=== PATIENT | male | born 1935 | race Caucasian/White ===

== ENCOUNTER 2023-03-31 13:38 | Observation (INO) | payer MEDICARE, SELFPAY ==
[2023-03-31] VITALS (47 sets, daily range): BP systolic 106–162; BP diastolic 60–93; PULSE 87–112; RESP 14–28; TEMP 36.4–36.8; O2SAT 90–100; BMI 24.0
--- NOTE | ~2023-03-31 | XR_ITS ---
EXAMINATION: XR chest 1V portable DATE: 03/31/2023 15:17 INDICATION: Shortness of breath and cough TECHNIQUE: frontal view of the chest was obtained. COMPARISON: None FINDINGS: Coarse interstitial and patchy airspace opacities in the bilateral mid and lower lung zones. Small ri ght pleural effusion. No pneumothorax. The cardiomediastinal silhouette is normal limits for AP techn ique. Mild thoracic dextrocurvature and partially visualized lumbar levocurvature with moderate thora cic and severe lumbar spondylosis. IMPRESSION: 1. Opacities in bilateral mid and lower lung zones which could represent pneumonia and/or pulmonary e dora. 2. Small right pleural effusion. Reviewed, dictated and finalized at location A. IMPRESSION: 1. Opacities in bilateral mid and lower lung zones which could represent pneumo hero and/or pulmonary edema. 2. Small right pleural effusion.
--- NOTE | ~2023-03-31 | US_ITS ---
US venous doppler [facility] DATE: 04/01/2023 08:55 INDICATION: Bilateral lower extremity edema TECHNIQUE: Real-time and color flow imaging and Doppler analysis of the veins of the lower extremitie s COMPARISON: None FINDINGS: There is thrombus within the right common femoral vein with incomplete compression. There is spontaneous flow, normal augmentation and color flow signal and normal compression of the re mainder of the deep veins of both lower extremities. The greater saphenous veins are patent. IMPRESSION: Deep venous thrombosis partially occluding right common femoral vein Reviewed, dictated and finalized at Location [facility]. Reviewed, dictated and finalized at location A. IMPRESSION: Deep venous thrombosis partially occluding right common femoral vei n
--- NOTE | ~2023-03-31 | CT_ITS ---
EXAMINATION: CTA chest PE protocol DATE: 04/01/2023 03:12 INDICATION: Shortness of breath. Cough. TECHNIQUE: Computed tomography angiography (CTA) of the chest was performed with 100 mL Omnipaque-350 intravenous contrast timed to evaluate the pulmonary arteries. Coronal maximum intensity projection 3D-reconstructions were created by the technologist. Automated exposure control and iterative reconst ruction technique were employed. The dose-length product was 528.03 mGy-cm. COMPARISON: Chest single view 03/31/2023 FINDINGS: There is mild emphysema. A calcified right lung nodule and calcified right hilar lymph node s are consistent with old granulomatous disease. There are patchy airspace opacities and nodules in a ll lobes with a lower lung predominance. The largest lung nodule measures 7 mm. There are small pleur al effusions. There is bilateral hilar and mediastinal lymphadenopathy and right supraclavicular lymp hadenopathy. For example, a right supraclavicular node measures 1.6 x 1.2 cm. The heart size is chelsie l. There are coronary artery calcifications. There are calcifications aortic valve. There is a small pericardial effusion. There is no pulmonary embolus. Partially visualized is severe right hydronephro sis. There is thoracic dextroscoliosis and kyphosis. There is severe cervical, thoracic, and lumbar s pondylosis. There are bridging endplate osteophytes at multiple levels in the spine, consistent with diffuse idiopathic skeletal hyperostosis (DISH). There is a lytic lesion in T8 vertebral body. IMPRESSION: 1. No pulmonary embolus. 2. Diffuse lung disease, likely pneumonia. Superimposed metastatic disease cannot be excluded. 3. Bilateral hilar, mediastinal, and right supraclavicular lymphadenopathy, which may be reactive and /or metastatic disease. 4. Small pleural effusions. 5. Small pericardial effusion. 6. T8 lytic lesion, which may be a hemangioma or metastatic disease. 7. Partially visualized severe right hydronephrosis. CT abdomen and pelvis without and with contrast (CT urogram) is recommended. 8. Mild emphysema. Reviewed, dictated and finalized at location E. IMPRESSION: 1. No pulmonary embolus. 2. Diffuse lung disease, likely pneumonia. Superimposed metastatic disease domonique ot be excluded. 3. Bilateral hilar, mediastinal, and right supraclavicular lymphadenopathy, whi ch may be reactive and/or metastatic disease. 4. Small pleural effusions. 5. Small pericardial effusion. 6. T8 lytic lesion, which may be a hemangioma or metastatic disease. 7. Partially visualized severe right hydronephrosis. CT abdomen and pelvis with out and with contrast (CT urogram) is recommended. 8. Mild emphysema.
--- NOTE | 2023-03-31 13:46 | ECG_ITS ---
Measurements Intervals [place] Rate: 92 P: 53 CO: 160 QRS: -11 QRSD: 69 T: 48 QT: 319 QTc: 395 Interpretive Statements SINUS RHYTHM ATRIAL PREMATURE COMPLEX BORDERLINE R WAVE PROGRESSION, ANTERIOR LEADS INFERIOR INFARCT, AGE INDETERMINATE ABNORMAL ECG NO PREVIOUS ECG AVAILABLE FOR COMPARISON Electronically Signed On 03-31-2023 17:01:08 CDT by Александр Núñez D.O.
--- NOTE | 2023-03-31 15:07 | ED.EXTPRO ---
HPI - Extremity Problem General Chief complaint: Extremity Problem,Nontraumatic Stated complaint: BLE swelling Time Seen by Provider: 03/31/23 14:16 History of Present Illness HPI Narrative: Patient is an 88-year-old male presenting with leg swelling. Patient states that for the last day or 2 he has had bilateral lower extremity swelling. States that it is not painful. He lives with his daughter who is concerned so they called an ambulance. States that he has oxygen at home but he uses it very infrequently. States that he has had a cough and some mild shortness of breath for the last couple of days. He denies any pain. Denies further complaints. Related Data Home Medications Medication Instructions Recorded Confirmed ammonium lactate 1 dose topical BID 03/31/23 03/31/23 desonide 0.05 % topical cream 1 applic topical BID 03/31/23 03/31/23 diclofenac sodium 75 mg 75 mg PO BID 03/31/23 03/31/23 tablet,delayed release finasteride 5 mg tablet 5 mg PO DAILY 03/31/23 03/31/23 misoprostol 100 mcg tablet 100 mcg PO BID 03/31/23 03/31/23 pregabalin 150 mg capsule 300 mg PO BID 03/31/23 03/31/23 rosuvastatin 10 mg tablet 10 mg PO DAILY 03/31/23 03/31/23 Allergies Allergy/AdvReac Type Severity Reaction Status Date / Time No Known Allergies Allergy Verified 03/31/23 21:40 Review of Systems Review of Systems: All systems reviewed & are unremarkable except as noted in HPI and below PMFSH Past Medical History Medical History (Updated 03/31/23 @ 23:27 by Fabienne Nash PA-C) Arthritis Benign prostatic hyperplasia Chronic obstructive pulmonary disease Chronic respiratory failure with hypoxia, on home oxygen therapy Hyperlipidemia Peptic ulcer Rheumatoid arthritis Tobacco dependence Surgical History Surgical History Surgical history unknown Family History Family History (Updated 03/31/23 @ 23:23 by Fabienne Nash PA-C) Other Family history unknown Social History Social History (Updated 03/31/23 @ 23:24 by Fabienne Nash PA-C) Social History: Surrogate medical decision maker: Chiquita Perez, daughter. Code status: Full code. Smoking packs per day: 1 Smoking cigarettes per day: 20.0 Years smoked: 69 Smoking pack-years: 69.00 Smoking status: Current every day smoker Tobacco type: cigarettes Alcohol intake: never Drinks per week: 0 Substance use: never Substance use type: does not use Lack of Transportation: No Lack of Food: Never True Current Housing: I Have Housing Concerned About Future Housing: No Difficulty Paying Gas/Electric Bills: No Difficulty Paying for Meds: No Currently Unemployed: No Education: Associate Degree Difficulty w/ Childcare or Family Care: No Additional living arrangements comments: Lives with daughter and son-in-law in [place]. Additional occupation/education comments: Retired. Was in the [employer] as a young man. Spiritual care concerns: No Exam Narrative: GENERAL: Chronically ill-appearing, nontoxic, no acute distress HEAD: Normocephalic, atraumatic. EYES: PERRLA and EOMI. ENT: Grossly unremarkable NECK: Supple. CHEST: Scattered wheezing and crackles, no respiratory distress, on 2 L nasal cannula HEART: Regular rate and rhythm. Normal peripheral pulses. ABDOMEN: Soft, nontender, nondistended EXTREMITIES: Normal range of motion. + Bilateral pitting edema almost to the knees with overlying venous stasis dermatitis SKIN: Warm, dry, see above NEURO: Alert and oriented x3. PSYCH: Normal affect Course Vital Signs Vital signs: Vital Signs Temperature 97.5 F L 03/31/23 13:37 Pulse Rate 96 03/31/23 13:37 Respiratory Rate 22 H 03/31/23 13:37 Blood Pressure 162/83 H 03/31/23 13:37 Pulse Oximetry 94 03/31/23 13:37 Oxygen Delivery Nasal Cannula 03/31/23 13:37 Oxygen Flow Rate 2 03/31/23 13:37 Temperature 97.8 F 04/02/23 14:00 P
[2023-03-31 15:26] LABS: Basophils Absolute Auto 0.1 K/mm3 (0.0-0.1); Basophils Percent Auto 0.6 % (0.2-1.2); Eosinophils Absolute Auto 0.2 K/mm3 (0-0.3); Eosinophils Percent Auto 1.6 % (0-4.4); Hematocrit 42.6 % (42.0-52.0); Hemoglobin 14.2 g/dL (14.0-18.0); Immature Granulocyte Absolute 0.03 K/mm3 (0.00-0.031); Immature Granulocyte Percent A 0.3 % (0-0.5); Lymphocytes Absolute Auto 1.85 K/mm3 (0.9-3.2); Lymphocytes Percent Auto 16.6 % (18.3-44.2); Mean Corpuscular HGB Conc 33.3 g/dl (32-36); Mean Corpuscular Hemoglobin 29.4 pg (26-34); Mean Corpuscular Volume 88.2 fl (80-100); Mean Platelet Volume 9.3 fl (7.4-10.4); Monocytes Absolute Auto 0.9 K/mm3 (0.1-0.6); Monocytes Percent Auto 7.9 % (2.6-8.5); Neutrophils Absolute Auto 8.1 K/mm3 (1.3-6.7); Platelet Count Result 352 k/mm3 (150-375); Red Blood Count 4.83 M/mm3 (4.6-6.20); Red Cell Distribution Width 14.6 % (11.5-14.5); White Blood Count 11.1 K/mm3 (4.5-10.0)
[2023-03-31 15:38] LABS: INR 1.1; Partial Thromboplastin Time 26.9 SECONDS (22.3-36.8); Prothrombin Time 14.3 Seconds (11.1-14.7)
[2023-03-31 15:39] LABS: Alanine Aminotransferase 19 U/L (6-50); Albumin Level 3.7 g/dL (3.5-5.1); Alkaline Phosphatase 128 U/L (38-126); Anion Gap 5 mmol/L (8-16); Aspartate Amino Transferase 38 U/L (17-59); Bilirubin,Total 0.5 mg/dL (0.2-1.3); Blood Urea Nitrogen 45 mg/dL (9-20); Calcium 8.4 mg/dL (8.4-10.2); Carbon Dioxide 31 mmol/L (22-30); Chloride 91 mmol/L (98-107); Estimated CRCL calculation 41 ml/min; Estimated Glomerular Filt Rate 57; Glucose 127 mg/dL (65-110); Magnesium 2.2 mg/dL (1.6-2.3); Potassium 4.5 mmol/L (3.4-5.0); Sodium 127 mmol/L (137-145)
[2023-03-31 15:50] LABS: NT Pro B Type Natriuretic Pept 295 pg/mL (19.9-100); Troponin I < 0.012 ng/mL (0.000-0.034)
[2023-03-31 16:02] LABS: Influenza A QL RT-PCR Negative (Negative); Influenza B QL RT-PCR Negative (Negative); SARS-CoV-2 RNA PCR Negative (Negative)
[2023-03-31] MEDS: IPRATROPIUM BR 0.02% INH SOLN 0.5 MG/2.5 ML VIAL INHALATION (16:46)
[2023-03-31] MEDS: ALBUTEROL SULFATE NEB 2.5 MG/3 ML INH 5 MG INHALATION (16:46)
[2023-03-31] MEDS: FUROSEMIDE INJ 40 MG/4 ML VIAL IV PUSH (17:49)
--- NOTE | 2023-03-31 20:55 | ADMGEN ---
This patient, Ryan Aguilar, was admitted to Medical Room 347-01. Patient/family oriented to hospital policies and general routines including ID bracelet, bed and alarms, visiting hours, pain management, procedures, bathroom and other care routines, personal items, smoking policy, room service/diet, and visiting hours. Information on how to activate the Rapid Response Team has been discussed. Patient/Family are encouraged to report perceived risks to care and to ask questions if they do not understand what they are told or what they should do.
[2023-03-31 22:53] LABS: Troponin I < 0.012 ng/mL (0.000-0.034)
--- NOTE | 2023-03-31 23:17 | PM.IMHP ---
H&P: HPI History of Present Illness Date/Time: 03/31/23 20:45 Chief Complaint: Leg swelling and shortness of breath. Narrative: This is a pleasant 88-year-old male smoker with chronic respiratory failure on p.r.n. oxygen, chronic obstructive pulmonary disease, rheumatoid arthritis, hyperlipidemia, benign prostatic hyperplasia, and deep venous thrombosis who presented to the emergency department via EMS from home for evaluation of leg swelling and shortness of breath. The patient provides the following history. He seems rather forgetful and is a fair historian. No family members are present to provide additional information and he has never been seen before at this facility. The last several days he reports increasing shortness of breath from baseline and has noticed an increase in lower extremity edema. He lives at home with his daughter and son-in-law who became concerned and encouraged him to come in for evaluation. He has a chronic smoker's cough which she states is unchanged. He denies fever, chills, sweats, headache, sinus congestion, sore throat, chest pain, pleuritic pain, palpitations, nausea, vomiting, and diarrhea. He was afebrile on arrival to the ED with stable blood pressures. He arrived on 2 L nasal cannula and his SpO2 has been in the mid 90s. He is intermittently tachycardic in the low 100s. Labs were significant for a WBC count of 11.1, sodium 127, chloride 91, BUN 45, creatinine 1.20, troponin less than 0.012, proBNP 295. He tested negative for influenza and COVID. Chest x-ray showed a small right pleural effusion and opacities in the bilateral mid and lower lung zones which could be pneumonia and/or pulmonary edema. He received a DuoNeb and furosemide 40 mg IV in the ED and he is being admitted in this setting for further treatment and evaluation. Review of Systems Review of Systems: Twelve systems were reviewed and are negative except for as per HPI. Limited however as he is forgetful. [facility] Past Medical History Medical History (Updated 03/31/23 @ 23:27 by Fabienne Nash PA-C) Arthritis Benign prostatic hyperplasia Chronic obstructive pulmonary disease Chronic respiratory failure with hypoxia, on home oxygen therapy Hyperlipidemia Peptic ulcer Rheumatoid arthritis Tobacco dependence Surgical History Surgical History Surgical history unknown Family History Family History (Updated 03/31/23 @ 23:23 by Fabienne Nash PA-C) Other Family history unknown Social History Social History (Updated 03/31/23 @ 23:24 by Fabienne Nash PA-C) Social History: Surrogate medical decision maker: Chiquita Perez, daughter. Code status: Full code. Smoking packs per day: 1 Smoking cigarettes per day: 20.0 Years smoked: 69 Smoking pack-years: 69.00 Smoking status: Current every day smoker Tobacco type: cigarettes Alcohol intake: never Drinks per week: 0 Substance use: never Substance use type: does not use Lack of Transportation: No Lack of Food: Never True Current Housing: I Have Housing Concerned About Future Housing: No Difficulty Paying Gas/Electric Bills: No Difficulty Paying for Meds: No Currently Unemployed: No Education: Associate Degree Difficulty w/ Childcare or Family Care: No Additional living arrangements comments: Lives with daughter and son-in-law in [place]. Additional occupation/education comments: Retired. Was in the [employer] as a young man. Spiritual care concerns: No Meds Home Medications and Allergies Home Medications Medication Instructions Recorded Confirmed Type ammonium lactate 1 dose topical BID 03/31/23 03/31/23 History desonide 0.05 % topical cream 1 applic topical BID 03/31/23 03/31/23 History diclofenac sodium 75 mg 75 mg PO BID 03/31/23 03/31/23 History tablet,delayed release finasteride 5 mg tablet 5 mg PO DAILY 03/31/23 03/31/23 History misoprostol 100 mcg t
[2023-04-01] VITALS (9 sets, daily range): BP systolic 127–133; BP diastolic 65–86; PULSE 88–99; RESP 18–22; TEMP 36.1–36.8; O2SAT 94–96
[2023-04-01 00:42] LABS: D Dimer 2.25 ug/mL (<0.48)
[2023-04-01 01:09] LABS: Sodium Urine Random 55 meq/L
[2023-04-01 01:31] LABS: Procalcitonin 0.1 ng/mL
[2023-04-01] MEDS: ACETAMINOPHEN 325 MG TABLET 650 MG PO (03:36)
[2023-04-01 06:06] LABS: Hematocrit 38.9 % (42.0-52.0); Hemoglobin 13.1 g/dL (14.0-18.0); Mean Corpuscular HGB Conc 33.7 g/dl (32-36); Mean Corpuscular Hemoglobin 29.3 pg (26-34); Mean Platelet Volume 9.5 fl (7.4-10.4); Platelet Count Result 343 k/mm3 (150-375); Red Blood Count 4.47 M/mm3 (4.6-6.20); Red Cell Distribution Width 14.6 % (11.5-14.5); White Blood Count 10.5 K/mm3 (4.5-10.0)
[2023-04-01 06:19] LABS: Anion Gap 4 mmol/L (8-16); Blood Urea Nitrogen 44 mg/dL (9-20); CRP 3.1 mg/dL (<1.0); Calcium 7.8 mg/dL (8.4-10.2); Carbon Dioxide 29 mmol/L (22-30); Chloride 93 mmol/L (98-107); Estimated CRCL calculation 44 ml/min; Estimated Glomerular Filt Rate > 60; Glucose 118 mg/dL (65-110); Magnesium 2.1 mg/dL (1.6-2.3); Potassium 3.7 mmol/L (3.4-5.0); Sodium 126 mmol/L (137-145)
[2023-04-01 08:06] LABS: Glucose Point of Care 135 mg/dl (65-105)
[2023-04-01] MEDS: FUROSEMIDE INJ 40 MG/4 ML VIAL 20 MG IV PUSH (08:50)
[2023-04-01] MEDS: ENOXAPARIN 40 MG/0.4 ML SYRINGE SUB-Q (08:50)
[2023-04-01] MEDS: miSOPROStol 100 MCG TABLET PO ×2 (08:51→17:37)
[2023-04-01] MEDS: ROSUVASTATIN 10 MG TABLET PO (08:51)
[2023-04-01] MEDS: DICLOFENAC SOD 75 MG TABLET.EC PO ×2 (08:51→17:37)
[2023-04-01] MEDS: PREGABALIN (*CRX) 75 MG CAPSULE 300 MG PO ×2 (08:51→17:37)
[2023-04-01] MEDS: FINASTERIDE 5 MG TABLET PO (08:51)
[2023-04-01] MEDS: LACTIC ACID 12% LOTION 225 BTL 1 APPLIC TOPICAL ×2 (08:52→17:37)
[2023-04-01] MEDS: DESONIDE 0.05% CREAM 15 GM TUBE 1 APPLIC TOPICAL ×2 (08:52→17:37)
--- NOTE | 2023-04-01 13:18 | PM.IMPN ---
Progress Note: A&P Assessment and Plan (1) Shortness of breath: Code(s): R06.02 - Shortness of breath Status: Acute (2) Hyponatremia: Code(s): E87.1 - Hypo-osmolality and hyponatremia Status: Acute (3) Chronic obstructive pulmonary disease: Code(s): J44.9 - Chronic obstructive pulmonary disease, unspecified Status: Acute (4) Chronic respiratory failure with hypoxia, on home oxygen therapy: Code(s): J96.11 - Chronic respiratory failure with hypoxia; Z99.81 - Dependence on supplemental oxygen Status: Acute (5) Lower extremity edema: Code(s): R60.0 - Localized edema Status: Acute (6) Pulmonary edema: Code(s): J81.1 - Chronic pulmonary edema Status: Acute (7) Tobacco dependence: Code(s): F17.200 - Nicotine dependence, unspecified, uncomplicated Status: Acute (8) Benign prostatic hyperplasia: Code(s): N40.0 - Benign prostatic hyperplasia without lower urinary tract symptoms Status: Acute (9) Rheumatoid arthritis: Code(s): M06.9 - Rheumatoid arthritis, unspecified Status: Acute Plan The patient presented to the emergency department for evaluation of shortness of breath and lower extremity edema as detailed in HPI. Labs, imaging, EKG, and all reports were personally reviewed. Chest x-ray showed opacities in the bilateral mid and lower lung zones which could represent pneumonia and/or pulmonary edema. continue IV lasix add IV rocephin and oral zitromax and continue with BT Continue on oxygen try to wean off Subjective Date/time seen: 04/01/23 13:18 Interval history: 88-year-old male smoker with chronic respiratory failure on p.r.n. oxygen, chronic obstructive pulmonary disease, rheumatoid arthritis, hyperlipidemia, benign prostatic hyperplasia, and deep venous thrombosis who presented to the emergency department via EMS from home for evaluation of leg swelling and shortness of breath. CXR showing - 1. Opacities in bilateral mid and lower lung zones which could represent pneumonia and/or pulmonary edema. 2. Small right pleural effusion. Pt needing oxygen continue iv lasix and add iv abx and breathing treatments Review of Systems Review of Systems: SOB Exam Narrative: General: Chronically ill-appearing gentleman sitting up in bed in no acute distress. Respiratory: Respirations are nonlabored and he is speaking in full sentences. Lung sounds are a bit diminished throughout with faint crackles at the right base. Cardiovascular: Tachycardic with normal S1-S2. Systolic murmur at the upper sternal border. Gastrointestinal: Abdomen is soft, nontender, and nondistended with positive bowel sounds. Skin: Warm and dry. Erythema of the lower legs, right greater than left, consistent with venous stasis. The area is not warm or tender to palpation. There are no open wounds or weeping. Extremities: No cyanosis or clubbing. 2+ lower extremity edema, softening above the knees. No palpable knots or cords. Radial and pedal pulses intact. Neurological: Alert and oriented to name, age, date of , and place. He cannot provide me with the current year and is a bit confused with regards to why he was brought into the hospital today. Cranial nerves 2-12 are grossly intact. Speech is clear. No facial asymmetry. No gross focal deficits noted. Psychiatric: Pleasantly confused and cooperative with appropriate mood and affect. Objective Data Vital Signs Vital Signs: Vital Signs - 24 hr 03/31/23 13:37 03/31/23 16:41 03/31/23 13:45 Temperature 36.4 C L Pulse Rate 96 93 Respiratory Rate 22 H 21 H Blood Pressure 162/83 H Pulse Oximetry 94 97 94 Oxygen Delivery Nasal Cannula Nasal Cannula Oxygen Flow Rate 2 2 03/31/23 13:46 03/31/23 14:00 03/31/23 14:01 Temperature Pulse Rate 93 90 92 Respiratory Rate 20 17 18 Blood Pressure 158/80 H 151/93 H Pulse Oximetry 93 90 92 Oxygen Delivery Oxygen Fl
[2023-04-01] MEDS: AZITHROMYCIN 250 MG TABLET 500 MG PO (14:49)
[2023-04-01] MEDS: FUROSEMIDE 40 MG TABLET PO (17:37)
--- NOTE | 2023-04-01 18:41 | PC.NURSE ---
Called Dr Garces to inform of venous doppler results - DVT partially occluding R femoral vein. stated she would put orders in, she ordered to d/c Lovenox. No new anticoagulation orders received.
[2023-04-02] VITALS (9 sets, daily range): BP systolic 116–141; BP diastolic 61–65; PULSE 86–106; RESP 18–20; TEMP 36.4–36.8; O2SAT 90–94; BMI 24.0
[2023-04-02 06:04] LABS: Anion Gap 5 mmol/L (8-16); Blood Urea Nitrogen 43 mg/dL (9-20); Carbon Dioxide 29 mmol/L (22-30); Chloride 91 mmol/L (98-107); Estimated CRCL calculation 38 ml/min; Estimated Glomerular Filt Rate 52; Glucose 140 mg/dL (65-110); Sodium 125 mmol/L (137-145)
[2023-04-02] MEDS: FINASTERIDE 5 MG TABLET PO (08:07)
[2023-04-02] MEDS: FUROSEMIDE 40 MG TABLET PO (08:07)
[2023-04-02] MEDS: DICLOFENAC SOD 75 MG TABLET.EC PO ×2 (08:07→17:16)
[2023-04-02] MEDS: AZITHROMYCIN 250 MG TABLET 500 MG PO (08:07)
[2023-04-02] MEDS: miSOPROStol 100 MCG TABLET PO ×2 (08:08→17:16)
[2023-04-02] MEDS: PREGABALIN (*CRX) 75 MG CAPSULE 300 MG PO ×2 (08:08→17:16)
[2023-04-02] MEDS: ROSUVASTATIN 10 MG TABLET PO (08:08)
[2023-04-02] MEDS: DESONIDE 0.05% CREAM 15 GM TUBE 1 APPLIC TOPICAL ×2 (08:08→17:15)
[2023-04-02] MEDS: LACTIC ACID 12% LOTION 225 BTL 1 APPLIC TOPICAL ×2 (08:08→17:16)
--- NOTE | 2023-04-02 13:09 | PM.IMPN ---
Progress Note: A&P Assessment and Plan (1) Shortness of breath: Code(s): R06.02 - Shortness of breath Status: Acute (2) Hyponatremia: Code(s): E87.1 - Hypo-osmolality and hyponatremia Status: Acute (3) Chronic obstructive pulmonary disease: Code(s): J44.9 - Chronic obstructive pulmonary disease, unspecified Status: Acute (4) Chronic respiratory failure with hypoxia, on home oxygen therapy: Code(s): J96.11 - Chronic respiratory failure with hypoxia; Z99.81 - Dependence on supplemental oxygen Status: Acute (5) Lower extremity edema: Code(s): R60.0 - Localized edema Status: Acute (6) Pulmonary edema: Code(s): J81.1 - Chronic pulmonary edema Status: Acute (7) Tobacco dependence: Code(s): F17.200 - Nicotine dependence, unspecified, uncomplicated Status: Acute (8) Benign prostatic hyperplasia: Code(s): N40.0 - Benign prostatic hyperplasia without lower urinary tract symptoms Status: Acute (9) Rheumatoid arthritis: Code(s): M06.9 - Rheumatoid arthritis, unspecified Status: Acute Plan The patient presented to the emergency department for evaluation of shortness of breath and lower extremity edema as detailed in HPI. Labs, imaging, EKG, and all reports were personally reviewed. Chest x-ray showed opacities in the bilateral mid and lower lung zones which could represent pneumonia and/or pulmonary edema. add IV rocephin and oral zithromax and continue with BT Continue oxygen at 2 liters. Daughter states he is a hospice pt and is usually on 2 liters of oxygen at home Lasix IV stopped pt on lasix orally as sodium is 125 Pt has Deep venous thrombosis partially occluding right common femoral vein?eliquis started for OAC Daughter states he had hematuria before due to blood thinners trying to contact PCP dr Delgado to find out more on this Subjective Date/time seen: 04/02/23 13:09 Interval history: 88-year-old male smoker with chronic respiratory failure on p.r.n. oxygen, chronic obstructive pulmonary disease, rheumatoid arthritis, hyperlipidemia, benign prostatic hyperplasia, and deep venous thrombosis who presented to the emergency department via EMS from home for evaluation of leg swelling and shortness of breath. CXR showing - 1. Opacities in bilateral mid and lower lung zones which could represent pneumonia and/or pulmonary edema. 2. Small right pleural effusion. Family state he is a hospice pt see by [facility] team his legs were more edematous so they sent him to hospital for evaluation. Pt uses oxygen at home here presently on 2 liters of oxygen. Long talk with daughter Chiquita trying to contact PCP DR Delgado in [facility] Review of Systems Review of Systems: SOB +leg edema Exam Narrative: General: Chronically ill-appearing gentleman Respiratory: Respirations are nonlabored and he is speaking in full sentences. Lung sounds are a bit diminished throughout with faint crackles at the right base. Cardiovascular: Tachycardic with normal S1-S2. Systolic murmur at the upper sternal border. Gastrointestinal: Abdomen is soft, nontender, and nondistended with positive bowel sounds. Skin: Warm and dry. Erythema of the lower legs, right greater than left, consistent with venous stasis. The area is not warm or tender to palpation. There are no open wounds or weeping. Extremities: No cyanosis or clubbing. 2+ lower extremity edema, softening above the knees. No palpable knots or cords. Radial and pedal pulses intact. Neurological: Alert and oriented to name, age, date of , and place. He cannot provide me with the current year and is a bit confused with regards to why he was brought into the hospital today. Cranial nerves 2-12 are grossly intact. Speech is clear. No facial asymmetry. No gross focal deficits noted. Psychiatric: Pleasantly confused and cooperative with appropriate mood and affect.
[2023-04-02] MEDS: FUROSEMIDE 20 MG TABLET PO (17:16)
[2023-04-03] VITALS: PULSE 89
--- NOTE | 2023-04-03 | ECHO_ITS ---
Patient Info Name: Ryan Aguilar Age: 88 years : 1935 Gender: Male Ht: 70 in Wt: 167 lbs BSA: 1.94 m2 HR: 85 bpm BP: 120 / 65 mmHg Heart Rhythm: Sinus Rhythm, Tachycardia Technical Quality: Good Exam Date: 04/03/2023 9:47 AM Exam Location: [facility] Patient Status: Outpatient Admit Date: 03/31/2023 Staff Ordering Physician: Fabienne Nash PA-C It Program Auditor: Lucie Mobley RDCS Attending Provider: Camron Rodarte MD Referring Physician: Saad NETTLES; Exam Type: CA echo doppler color flow Study Info Indications - edema , pleural effusion Complete two-dimensional, color flow and Doppler transthoracic echocardiogram is performed. Summary 1. Complete two-dimensional, color flow and Doppler transthoracic echocardiogram is performed. 2. Left ventricular chamber dimension is normal. 3. Left ventricular systolic function is hyperdynamic, estimated at >70%. 4. There is mildly increased left ventricular wall thickness. 5. The left ventricular diastolic function is grade I diastolic dysfunction. 6. There is mild tricuspid valve regurgitation. Left Ventricle Left ventricular chamber dimension is normal. Left ventricular systolic function is hyperdynamic, estimated at >70%. There is mildly increased left ventricular wall thickness. The left ventricular diastolic function is grade I diastolic dysfunction. Right Ventricle Right ventricular chamber dimension is normal. Left Atria Left atrial chamber dimension is normal. Right Atria Right atrial chamber dimension is normal. Aortic Valve The aortic valve is not well visualized. There is no aortic valve stenosis. There is no aortic valve regurgitation. There is moderate aortic valve calcification. Pulmonic Valve The pulmonic valve is not well visualized. Mitral Valve There is trace mitral valve regurgitation. Tricuspid Valve There is mild tricuspid valve regurgitation. Pericardium/Pleural No pericardial effusion. Inferior Vena Cava Inferior vena cava is not well visualized. Aorta The aortic root size at the sinus of Valsalva is normal. Left Ventricular Outflow Tract Name Value Normal LVOT 2D LVOT Diameter 1.8 cm LVOT Doppler LVOT Peak Gradient 8 mmHg LVOT Mean Gradient 4 mmHg LVOT VTI 35 cm LVOT VTI/AV VTI Ratio 0.9 LVOT Stroke Volume 86 ml LVOT CO 7.6 l/min LVOT CI 3.9 l/min/m2 Pulmonic Valve Name Value Normal RVOT Doppler RVOT Peak Gradient 1 mmHg PV Doppler PV Peak Gradient 3 mmHg Mitral Valve Name Value Normal
[2023-04-03 04:00] VITALS: PULSE 85
[2023-04-03 05:46] LABS: Hemoglobin 13.5 g/dL (14.0-18.0); Mean Corpuscular HGB Conc 32.9 g/dl (32-36); Mean Corpuscular Hemoglobin 29.2 pg (26-34); Mean Corpuscular Volume 88.7 fl (80-100); Mean Platelet Volume 9.3 fl (7.4-10.4); Platelet Count Result 330 k/mm3 (150-375); Red Blood Count 4.62 M/mm3 (4.6-6.20); Red Cell Distribution Width 14.6 % (11.5-14.5); White Blood Count 10.8 K/mm3 (4.5-10.0)
[2023-04-03 05:54] LABS: Anion Gap 5 mmol/L (8-16); Blood Urea Nitrogen 49 mg/dL (9-20); Calcium 7.8 mg/dL (8.4-10.2); Carbon Dioxide 32 mmol/L (22-30); Chloride 88 mmol/L (98-107); Estimated CRCL calculation 38 ml/min; Estimated Glomerular Filt Rate 52; Glucose 130 mg/dL (65-110); Potassium 3.7 mmol/L (3.4-5.0); Sodium 125 mmol/L (137-145)
[2023-04-03 06:00] VITALS: BP 149/75; PULSE 97; RESP 22; TEMP 36.7; O2SAT 93
[2023-04-03 08:00] VITALS: PULSE 82; PULSE 97; RESP 22; O2SAT 93
[2023-04-03] MEDS: FINASTERIDE 5 MG TABLET PO (09:29)
[2023-04-03] MEDS: AZITHROMYCIN 250 MG TABLET 500 MG PO (09:29)
[2023-04-03] MEDS: miSOPROStol 100 MCG TABLET PO (09:29)
[2023-04-03] MEDS: PREGABALIN (*CRX) 75 MG CAPSULE 300 MG PO (09:29)
[2023-04-03] MEDS: DICLOFENAC SOD 75 MG TABLET.EC PO (09:29)
[2023-04-03] MEDS: FUROSEMIDE 20 MG TABLET PO (09:30)
--- NOTE | 2023-04-03 09:51 | PM.DS ---
DS: Admitting Diagnosis Discharge Date 04/03/2023 Admitting Diagnosis Leg swelling and shortness of breath. DS: Discharge Diagnosis Discharge Diagnosis (1) Shortness of breath: Code(s): R06.02 - Shortness of breath Status: Acute (2) Hyponatremia: Code(s): E87.1 - Hypo-osmolality and hyponatremia Status: Acute (3) Chronic obstructive pulmonary disease: Code(s): J44.9 - Chronic obstructive pulmonary disease, unspecified Status: Acute (4) Chronic respiratory failure with hypoxia, on home oxygen therapy: Code(s): J96.11 - Chronic respiratory failure with hypoxia; Z99.81 - Dependence on supplemental oxygen Status: Acute (5) Lower extremity edema: Code(s): R60.0 - Localized edema Status: Acute (6) Pulmonary edema: Code(s): J81.1 - Chronic pulmonary edema Status: Acute (7) Tobacco dependence: Code(s): F17.200 - Nicotine dependence, unspecified, uncomplicated Status: Acute (8) Benign prostatic hyperplasia: Code(s): N40.0 - Benign prostatic hyperplasia without lower urinary tract symptoms Status: Acute (9) Rheumatoid arthritis: Code(s): M06.9 - Rheumatoid arthritis, unspecified Status: Acute Plan The patient presented to the emergency department for evaluation of shortness of breath and lower extremity edema as detailed in HPI. Labs, imaging, EKG, and all reports were personally reviewed. Chest x-ray showed opacities in the bilateral mid and lower lung zones which could represent pneumonia and/or pulmonary edema. add IV rocephin and oral zithromax and continue with BT Continue oxygen at 2 liters. Daughter states he is a hospice pt and is usually on 2 liters of oxygen at home can transition to oral Zithromax and discharge the patient. DS: Summary Hospital Course Hospital Course: The patient presented to the emergency department for evaluation of shortness of breath and lower extremity edema as detailed in HPI. Labs, imaging, EKG, and all reports were personally reviewed. Chest x-ray showed opacities in the bilateral mid and lower lung zones which could represent pneumonia and/or pulmonary edema. add IV rocephin and oral zithromax and continue with BT Continue oxygen at 2 liters. Daughter states he is a hospice pt and is usually on 2 liters of oxygen at home can transition to oral Zithromax and discharge the patient. Sodium is still low can dc lasix on DC. Pt has Deep venous thrombosis partially occluding right common femoral vein?asa started for OAC Daughter states he had hematuria before due to blood thinners Pt has history of bladder scan and had severe hematuria in a previous admission D/C with DR Delgado PCp no further OAC pt is high risk of bleeding Time Spent with Patient Time attestation: Total time spent providing and/or coordinating discharge services:4 minutes on day of Dc Exam Narrative: General: Chronically ill-appearing gentleman Respiratory: Respirations are nonlabored and he is speaking in full sentences. Lung sounds are a bit diminished throughout with faint crackles at the right base. Cardiovascular: Tachycardic with normal S1-S2. Systolic murmur at the upper sternal border. Gastrointestinal: Abdomen is soft, nontender, and nondistended with positive bowel sounds. Skin: Warm and dry. Erythema of the lower legs, right greater than left, consistent with venous stasis. The area is not warm or tender to palpation. There are no open wounds or weeping. Extremities: No cyanosis or clubbing. 2+ lower extremity edema, softening above the knees. No palpable knots or cords. Radial and pedal pulses intact. Neurological: Alert and oriented to name, age, date of , and place. He cannot provide me with the current year and is a bit confused with regards to why he was brought into the hospital today. Cranial nerves 2-12 are grossly intact. Speech is clear. No facial asymmetry. No gross
[2023-04-03] MEDS: ROSUVASTATIN 10 MG TABLET PO (11:18)
[2023-04-03] MEDS: LACTIC ACID 12% LOTION 225 BTL 1 APPLIC TOPICAL (11:18)
[2023-04-03] MEDS: DESONIDE 0.05% CREAM 15 GM TUBE 1 APPLIC TOPICAL (11:19)
--- NOTE | 2023-04-03 14:08 | PC.NURSE ---
Pt family came up to take pt home. When this nurse went into room to have paperwork signed by the POA. The family member stated that the POA was out in the car and would go get her. Family member came back and said POA would like the paperwork brought to her downstairs to sign. Packet gone over with all family. Verbalized understanding.
--- NOTE | 2023-04-03 14:14 | PC.NURSE ---
discharge instructions faxed to Hospice.
[2023-04-04 15:14] LABS: Osmolality, Urine 258 mOsm/kg (50-1200)
== END 2023-04-03 14:14 | disposition hospice, home (50) ==
LOC: ANHED 17:16 → ANH3MED 21:05
PROVIDERS: Physician Assistant; Admitting Provider Hospitalist; Emergency Provider Emergency Medicine; Visit Provider Family Medicine
DX: E87.1 Hypo-osmolality and hyponatremia (principal); J96.11 Chronic respiratory failure with hypoxia; J44.9 Chronic obstructive pulmonary disease, unspecified; Z99.81 Dependence on supplemental oxygen; J81.1 Chronic pulmonary edema; N40.0 Benign prostatic hyperplasia without lower urinary tract symptoms; M06.9 Rheumatoid arthritis, unspecified; F17.210 Nicotine dependence, cigarettes, uncomplicated; Z20.822 Contact with and (suspected) exposure to COVID-19
CPT/HCPCS: 36415; 71045; 71275; 80048; 80053; 82570; 82948; 83735; 83880; 83930; 83935; 84145; 84300; 84443; 84484; 85025; 85027; 85380; 85610; 85730; 86140; 87636; 93005; 93306; 93970; 94640; 96365; 96366; 96372; 96374; 96376; 99285; A9270; G0378; J0696; J1650; J1940; Q9967